=== PATIENT | female | born 1955 | race Caucasian/White ===

== ENCOUNTER 2024-01-20 09:25 | Day surgery (SDC) | payer MEDICARE ==
[2024-01-20] MEDS ORDERED: Depo-Medrol 40 MG/ML IM ONE (09:26)
[2024-01-20] MEDS ORDERED: Xylocaine-Mpf 2% 5 Ml Vial IJ ONE (09:26)
[2024-01-20] MEDS ORDERED: DIPRIVAN 200 MG/20 ML IV ONE (11:14)
--- NOTE | 2024-01-20 14:37 | XRAY ---
Indication: Bilateral L4-S1 MBB. Intraoperative fluoroscopy provided for 13 seconds. Single digital spot image submitted for interpretation demonstrates posterior needle tips projecting over the expected left and right L4-S1 nerve roots. Correlate with operative findings/report.
--- NOTE | 2024-01-20 17:10 | XRAY ---
13 seconds of fluoroscopy was used in surgery for a bilateral L4-S1 MBB.
== END 2024-01-20 11:40 | disposition home or self-care (01) ==
LOC: SDC-PAIN 09:25
PROVIDERS: ATTEND Psychiatry & Neurology Pain Medicine
DX: M47.816 Spondylosis without myelopathy or radiculopathy, lumbar region (principal); E11.9 Type 2 diabetes mellitus without complications
CPT/HCPCS: 64493; 64494; 72020; 77002; 82947; J2704

== ENCOUNTER 2024-04-06 07:02 | Day surgery (SDC) | payer MEDICARE ==
[2024-04-06] MEDS ORDERED: propofoL IV ONE (09:07)
--- NOTE | 2024-04-06 11:21 | XRAY ---
Indication: Bilateral L4-S1 MBB. Intraoperative fluoroscopy provided for 11 seconds. 2 digital spot image submitted for interpretation demonstrates posterior needle tips projecting over expected left and right L4-S1 nerve roots. Correlate with intraoperative findings/report.
--- NOTE | 2024-04-06 12:04 | XRAY ---
11 seconds of fluoroscopy was used in surgery for a bilateral L4-S1 MBB.
== END 2024-04-06 09:40 | disposition home or self-care (01) ==
LOC: SDC-PAIN 07:02
PROVIDERS: ATTEND Psychiatry & Neurology Pain Medicine
DX: M47.816 Spondylosis without myelopathy or radiculopathy, lumbar region (principal); E11.9 Type 2 diabetes mellitus without complications
CPT/HCPCS: 72020; 77002; 82947; J2704

== ENCOUNTER 2024-05-04 07:47 | Day surgery (SDC) | payer MEDICARE ==
[2024-05-04] MEDS ORDERED: LIDOCAINE HCL 2% 100 MG/5 ML IJ ONE (07:48)
[2024-05-04] MEDS ORDERED: BUPIVACAINE 0.5% VIAL IJ ONE (07:48)
[2024-05-04] MEDS ORDERED: Depo-Medrol 40 MG/ML IM ONE (07:48)
[2024-05-04] MEDS ORDERED: Lactated Ringers 500 ML IV ONE (07:59)
[2024-05-04] MEDS ORDERED: propofoL IV ONE (09:30)
--- NOTE | 2024-05-04 11:36 | XRAY ---
Indication: Left L4-S1 RFA. Interoperative fluoroscopy provided for 15 seconds. 3 digital spot image submitted for interpretation demonstrates posterior needle tips project over expected left L4-S1 nerve root. Correlate with intraoperative findings/report.
--- NOTE | 2024-05-04 11:44 | XRAY ---
15 seconds of fluoroscopy was used in surgery for a left L4-S1 RFA.
== END 2024-05-04 10:04 | disposition home or self-care (01) ==
LOC: SDC-PAIN 07:47
PROVIDERS: ATTEND Psychiatry & Neurology Pain Medicine
DX: M47.817 Spondylosis without myelopathy or radiculopathy, lumbosacral region (principal); E11.9 Type 2 diabetes mellitus without complications
CPT/HCPCS: 64635; 64636; 72100; 77002; 82947; J2704

== ENCOUNTER 2024-05-11 08:06 | Day surgery (SDC) | payer MEDICARE ==
[2024-05-11] MEDS ORDERED: LIDOCAINE HCL 1% AMPUL 5 ML IJ ONE (08:07)
[2024-05-11] MEDS ORDERED: BUPIVACAINE 0.5% VIAL IJ ONE (08:07)
[2024-05-11] MEDS ORDERED: Depo-Medrol 40 MG/ML IM ONE (08:07)
[2024-05-11] MEDS ORDERED: Lactated Ringers 500 ML IV ONE (08:35)
[2024-05-11] MEDS ORDERED: propofoL IV ONE ×2 (08:37→09:06)
--- NOTE | 2024-05-11 10:20 | XRAY ---
Indication: Right L4-S1 RFA. Intraoperative fluoroscopy provided for 20 seconds. 5 digital spot image submitted for interpretation demonstrates posterior needle tips projecting over expected right L4-S1 nerve roots. Correlate with intraoperative findings/report.
--- NOTE | 2024-05-11 10:35 | XRAY ---
20 seconds of fluoroscopy was used in surgery for a right L4-S1 RFA.
== END 2024-05-11 09:40 | disposition home or self-care (01) ==
LOC: SDC-PAIN 08:06
PROVIDERS: ATTEND Psychiatry & Neurology Pain Medicine
DX: M47.816 Spondylosis without myelopathy or radiculopathy, lumbar region (principal); E11.9 Type 2 diabetes mellitus without complications
CPT/HCPCS: 64635; 64636; 72100; 77002; 82947; J2704